=== PATIENT | female | born 1960 | race Caucasian/White ===

== ENCOUNTER → 2016-12-25 | Outpatient (CLI) | payer BC ==
[~2016-12-25] VITALS: Ht 165.1 cm; Wt 99.3 kg
[~2016-12-25] MED LIST: CALTRATE 600 +1 EAC2 PO; CITALOPRAM HBR20 MG PO; DAILY MULTIPLE1 EACH PO; GABAPENTIN100 MG PO; HAIR-SKIN-NAIL1 EACH PO; OMEPRAZOLE20 MG PO; TYLENOL ARTHRI650 MG PO
== END | disposition home or self-care (01) ==
LOC: AMB 12:27
PROC: 0DJ08ZZ Inspection of Upper Intestinal Tract, Via Natural or Artificial Opening Endoscopic (ICD-10-PCS; principal; 2016-12-25)
DX: K29.70 Gastritis, unspecified, without bleeding (principal); K21.9 Gastro-esophageal reflux disease without esophagitis; G47.30 Sleep apnea, unspecified; E66.01 Morbid (severe) obesity due to excess calories; Z68.36 Body mass index [BMI] 36.0-36.9, adult; Z87.891 Personal history of nicotine dependence; Z83.3 Family history of diabetes mellitus; Z80.9 Family history of malignant neoplasm, unspecified; Z82.49 Family history of ischemic heart disease and other diseases of the circulatory system

== ENCOUNTER 2017-01-10 07:44 | Day surgery (SDC) | payer BC ==
[~2017-01-10] VITALS: Ht 165.1 cm; Wt 100.0 kg
== END 2017-01-10 09:10 | disposition home or self-care (01) ==
LOC: PAIN 07:44 → SDC 08:15 → PAIN 09:10
DX: M46.1 Sacroiliitis, not elsewhere classified (principal); F41.9 Anxiety disorder, unspecified; M47.26 Other spondylosis with radiculopathy, lumbar region; M54.5 Low back pain; M54.2 Cervicalgia; F32.9 Major depressive disorder, single episode, unspecified; K21.9 Gastro-esophageal reflux disease without esophagitis; M96.1 Postlaminectomy syndrome, not elsewhere classified; E66.01 Morbid (severe) obesity due to excess calories; Z68.41 Body mass index [BMI] 40.0-44.9, adult; Z87.891 Personal history of nicotine dependence
CPT/HCPCS: J1030; J2250; J3010; S0020

== ENCOUNTER 2017-02-20 08:41 | Inpatient (IN) | payer BC ==
[~2017-02-20] VITALS: Ht 165.1 cm; Wt 100.0 kg
[2017-02-20 03:40] VITALS: BP 137/69
[2017-02-20 09:00] VITALS: BP 134/60
[2017-02-20 09:47] LABS: POINT-OF-CARE METER ID UU14174212
[2017-02-20 19:30] VITALS: BP 113/56
[2017-02-20 23:16] VITALS: BP 110/55
[2017-02-21 03:27] VITALS: BP 112/51
[2017-02-21 07:52] LABS: HEMATOCRIT 43.3 % (36.0-46.0); MCH 31.6 PG (29.0-34.0); MCHC 33.3 G/DL (30.0-36.0); MCV 95.2 FL (83-99); MEAN PLAT.VOLUME 10.1 uM^3 (9.5-12.4); RBC DIS.WIDTH-SD 45.4 % (39-53); RED BLOOD COUNT 4.55 M/uL (3.80-5.20)
[2017-02-21 07:55] LABS: PLATELET COUNT 243 K/uL (156-360); WHITE BLOOD COUNT 15.2 K/uL (4.1-10.2)
[2017-02-21 08:00] VITALS: BP 112/55
[2017-02-21] MEDS ORDERED: HYDROCODON-ACE1 EAC7 PO (08:05)
[2017-02-21 08:36] LABS: CHLORIDE 104 mEq/L (99-109); MAGNESIUM 2.2 mg/dL (1.3-2.7); POTASSIUM 4.4 mEq/L (3.7-5.4); SODIUM 140 mEq/L (136-147)
[2017-02-21 08:38] LABS: GLUCOSE 106 mg/dL (70-99)
[2017-02-21 08:39] LABS: ANION GAP 10 MEQ/L (2-14)
[2017-02-21 08:42] LABS: GFR ESTIMATE (CALCULATED) > 59 mL/min/
[2017-02-21 08:43] LABS: UREA NITROGEN (BUN) 14 mg/dL (9-23)
== END 2017-02-21 09:30 | disposition home or self-care (01) | DRG 621 ==
LOC: 2SOUTH → 2EAST 15:10 → 2SOUTH 15:25 → 2EAST 02-21 09:30
PROVIDERS: Surgery
PROC: 0DB64Z3 Excision of Stomach, Percutaneous Endoscopic Approach, Vertical (ICD-10-PCS; principal; 2017-02-20)
DX: E66.01 Morbid (severe) obesity due to excess calories (principal); Z68.37 Body mass index [BMI] 37.0-37.9, adult; K21.9 Gastro-esophageal reflux disease without esophagitis; G47.33 Obstructive sleep apnea (adult) (pediatric); E78.2 Mixed hyperlipidemia; I35.9 Nonrheumatic aortic valve disorder, unspecified
CPT/HCPCS: 80048; 82948; 83735; 84100; 85027; J0131; J0330; J0690; J1100; J1170; J1644; J1650; J1815; J2250; J2270; J2405; J2710; J2765; J3010; J3480; J7120; S0020